=== PATIENT | female | born 1990 | race Caucasian/White ===

== ENCOUNTER 2023-03-29 22:18 | Inpatient (IN) ==
[2023-03-29] MEDS ORDERED: OXYTOCIN 30 UNITS/500 ML BAG IV PRN (22:55)
[2023-03-29] MEDS ORDERED: LIDOCAINE 1% LOCAL 20 ML VIAL INFIL PRN (22:55)
--- NOTE | 2023-03-29 23:01 | History & Physical Report ---
Date of Service March 29, 2023 Assessment & Plan (1) Supervision of normal intrauterine in primigravida: Plan: 32 yo G1 at 40 5/7 wga admitted in labor VSS Fetus cat 1 Labor - expectant management, desires minimal intervention GBS neg desires unmedicated History of Present Illness Chief Complaint: ctx Primary Care Provider: NO PCP 32 yo G1 at 40 5/7 wga presents w/ ctx increasing in frequency and intensity. +FM; denies LOF, VB PNI: VANI from [place] Allergies Allergy/AdvReac Type Severity Reaction Status Date / Time No Known Allergies Allergy Verified 03/23/23 11:15 Home Medications Medication Instructions Recorded Confirmed Type vit 168-iron 27 mg-folic cap PO 01/19/23 03/23/23 History acid 800 mcg-omega3 235 mg capsule (One-A-Day -1) breast pump #1 ea 02/10/23 03/23/23 Rx Patient History Social History (Updated 01/19/23 @ 11:01 by Yocasta Quispe) Smoking Status: Never smoker Do You Dip or Chew Tobacco: No; marital status: marital status details: asas (31) [phone] Current Living Situation: Spouse Current Living Situation Comment: lives with spouse, no pets current occupational status: unemployed Physical Exam Genitourinary: OB Exam Abdomen: + vertex (confirmed by bsus) Manual OB Exam: + cervical dilation (3-4), + cervical effacement 90% and + station -2 OB Exam Monitor Tracing: + external FHT monitor used, + external uterine monitor used (q5) and + category I (120/mod/+accel/-decel) bulging bag noted Results & Data Vital Signs (Past 12 Hours) Vital Signs Temp Pulse Resp BP 03/29/23 22:47 97.9 F 69 18 126/77 Laboratory Results OB Labs: Hemoglobin 10.7 g/dl (12.0-16.0) L 01/27/23 Hematocrit 32.4 % (37.0-47.0) L 01/27/23 Mean Corpuscular Volume 91.5 fL (80.0-100.0) 01/27/23 Platelet Count 165 K/uL (130-400) 01/27/23 OB Optional Labs: No Data to Display Labs Reviewed: AB+ 07/21/22 1st tri 11.2, 34.5 plt 217 ucx neg Syphilis ab neg Hep B surface ag neg hep C neg HIV neg rubella nonimmune 7/2 H/H 10.1/31.5 plt 178 12/04/22 1hr 104 Reports neg Congregation carrier screen Neg NIPT male GBS neg--akh Diagnostic Findings ant plac Coding Level of Care Code None Diagnoses Supervision of normal intrauterine in primigravida Z34.00
[2023-03-29 23:28] LABS: Hematocrit (blood only) 31.6 % (37.0-47.0); Hemoglobin 10.7 g/dl (12.0-16.0); Mean Corpuscular Hemoglobin 30.2 pg (25.0-34.0); Mean Corpuscular Hgb Conc 33.9 g/dL (32.0-36.0); Mean Corpuscular Volume 89.3 fL (80.0-100.0); Mean Platelet Volume 9.4 fL (9.4-12.4); Platelet Count 166 K/uL (130-400); RDW Coefficient of Variation 13.5 % (11.5-14.5); RDW Standard Deviation 44.1 fL (36.4-46.3); Red Blood Count 3.54 M/uL (4.20-5.40); White Blood Count 11.85 K/ul (4.8-10.8)
[2023-03-30] MEDS: LACTATED RINGER'S 1,000 ML IV PRN ×3 (01:45→10:39)
[2023-03-30] MEDS ORDERED: LIDOCAINE 2%/EPINEPHRINE 1:200,000 20 ML PF ONE (01:46)
[2023-03-30] MEDS ORDERED: ePHEDrine sulfate 50 MG/ML AMP ONE (01:46)
[2023-03-30] MEDS ORDERED: fentANYL 2 MCG/ML BUPIVacaine 0.125%-NSS 100ML BAG ONE (01:46)
[2023-03-30] MEDS ORDERED: fentaNYL citrate PF 100 MCG/2 ML VIAL ONE (01:46)
[2023-03-30] MEDS ORDERED: SODIUM CHLORIDE 0.9% PF INJ 10 ML VIAL ONE (01:46)
[2023-03-30] MEDS ORDERED: BUPIVACAINE 0.25% PF 30 ML VIAL ONE (01:46)
[2023-03-30] MEDS ORDERED: diphenhydrAMINE 50 MG/ML VIAL IV PRN (01:54)
[2023-03-30] MEDS ORDERED: ROPIVACAINE 0.5% PF 5 MG/ML 20 ML VIAL EPI PRN (01:54)
[2023-03-30] MEDS ORDERED: fentANYL 2 MCG/ML BUPIVacaine 0.125%-NSS 100ML BAG EPI PRN (01:54)
[2023-03-30] MEDS ORDERED: LIDOCAINE 2%/EPINEPHRINE 1:200,000 20 ML PF EPI STA (01:54)
[2023-03-30] MEDS ORDERED: ePHEDrine sulfate 50 MG/ML AMP IV PRN (01:54)
[2023-03-30] MEDS ORDERED: NALOXONE HCL 0.4 MG/1 ML VIAL/CARP IV PRN (01:54)
[2023-03-30] MEDS ORDERED: BUPIVACAINE 0.25% PF 30 ML VIAL EPI PRN (01:54)
[2023-03-30] MEDS ORDERED: LIDOCAINE 2% MPF LOCAL 5 ML VIAL EPI PRN (01:54)
[2023-03-30] MEDS ORDERED: SODIUM CHLORIDE 0.9% PF INJ 10 ML VIAL EPI STA (01:54)
[2023-03-30] MEDS ORDERED: fentaNYL citrate PF 100 MCG/2 ML VIAL EPI STA (01:54)
[2023-03-30] MEDS ORDERED: NALOXONE HCL 1 MG in SODIUM CHLORIDE 0.9% 1,000 ML IV PRN (01:54)
[2023-03-30] MEDS ORDERED: BUPIVACAINE 0.25% PF 30 ML VIAL EPI STA (01:54)
[2023-03-30] MEDS ORDERED: ONDANSETRON INJ 2 MG/ML 2 ML VIAL IV PRN (01:54)
[2023-03-30] MEDS ORDERED: NALBUPHINE HCL 5 MG in SYRINGE 0 ML IV PRN (01:54)
[2023-03-30] MEDS ORDERED: fentaNYL citrate PF 100 MCG/2 ML VIAL EPI PRN (01:54)
[2023-03-30] MEDS ORDERED: SODIUM CHLORIDE 0.9% PF INJ 10 ML VIAL EPI PRN (01:54)
--- NOTE | 2023-03-30 01:54 | Anesthesiology Consultation ---
Date of Service March 30, 2023 Assessment & Plan Chart Review Chart Review: Acceptable Risk for Labor Epidural Consults Requested none ASA ASA2 Proposed Anesthesia Anesthesia Type: Labor Epidural Risk / Benefits Reviewed With: PT / POA / Parent / Guardian, Accepts Plan and Informed Consent Obtained History Height/Weight Height: 5 ft 3.78 in Weight: 71.668 kg Allergies Allergy/AdvReac Type Severity Reaction Status Date / Time No Known Allergies Allergy Verified 03/30/23 00:29 Medications Home Medications Medication Instructions Recorded Confirmed Last Taken vit 168-iron 27 mg-folic 1 cap PO DAILY 01/19/23 03/30/23 03/29/23 acid 800 mcg-omega3 235 mg capsule (One-A-Day -1) breast pump #1 ea 02/10/23 03/23/23 Unknown ferrous sulfate 325 mg (65 mg 325 mg PO DAILY 03/29/23 03/29/23 03/29/23 iron) tablet (iron) [id number] 1 cap PO DAILY 03/29/23 03/29/23 03/29/23 oil 350 mg- 400 mg capsule Exercise / Class Metabolic Activity II 4-5 Yardwork/Stairs/Walk up hill Past Anesthesia History No Hx of Anesthesia Complications and No Family Hx of Anesthesia Complications History of PONV No Hx of PONV and No Hx of Motion Sickness Social History Smoking Status: Never smoker Do You Dip or Chew Tobacco: No Hx Alcohol Use: No Hx Substance Use: No Physical Exam Vital Signs Last Vital Signs Temp 97.9 F 03/29/23 22:49 Pulse 69 03/29/23 22:49 Resp 18 03/29/23 22:49 BP 126/77 03/29/23 22:49 ENMT Mouth: no dentition abnormality Thyromental Distance: > or= 3.5 Finger Breadths Mallampati Class: II Neck normal visual inspection Respiratory normal respiratory effort Auscultation: lungs clear to auscultation bilaterally Cardiovascular Rate/Rhythm: regular rate and regular rhythm Testing Laboratory Results 03/29/23 23:11
--- NOTE | 2023-03-30 07:23 | Labor Progress Brief Note ---
Date of Service March 30, 2023 Subjective comfortable w/ epidural Assessment & Plan (1) Supervision of normal intrauterine in primigravida: Plan: 32 yo G1 at 40 5/7 wga admitted in labor VSS Fetus cat 1 Labor - progressed well to 7cm, discussed arom and she is amenable. Upon initiation of exam, membranes ruptured with touching. Augment prn GBS neg epidural in place Admission and Anticipated Discharge Date Admission Date: March 29, 2023 Physical Exam Genitourinary: Manual OB Exam: + cervical dilation 7 cm, + cervical effacement 90%, + station -1 and + amniotic fluid (arom clear with just touching bag) OB Exam Monitor Tracing: + external FHT monitor used, + external uterine monitor used (q5) and + category I (120/mod/+accel/-decel) Results & Data Vital Signs (Past 12 Hours) Vital Signs Temp Pulse Resp BP Pulse Ox 03/30/23 07:20 64 97 03/30/23 07:15 63 97 03/30/23 07:13 67 118/72 03/30/23 07:10 62 97 03/30/23 07:05 67 98 03/30/23 07:00 63 97 03/30/23 06:59 59 L 115/68 03/30/23 06:55 62 98 03/30/23 06:53 57 L 94 03/30/23 06:50 80 99 03/30/23 06:45 60 98 03/30/23 06:44 57 L 117/59 L 03/30/23 06:40 62 97 03/30/23 06:35 64 97 03/30/23 06:30 61 18 117/67 98 03/30/23 06:25 62 97 03/30/23 06:20 61 98 03/30/23 06:15 62 98 03/30/23 06:13 65 129/73 03/30/23 06:10 61 97 03/30/23 06:05 66 98 03/30/23 06:00 61 18 97 03/30/23 05:59 64 121/65 03/30/23 05:55 62 97 03/30/23 05:50 67 99 03/30/23 05:45 98 03/30/23 05:45 59 L 03/30/23 05:45 65 115/69 03/30/23 05:40 98.1 F 61 98 03/30/23 05:39 64 114/65 03/30/23 05:35 75 99 03/30/23 05:30 66 18 98 03/30/23 05:25 77 98 03/30/23 05:20 65 97 03/30/23 05:15 71 97 03/30/23 05:10 69 99 03/30/23 05:05 66 99 03/30/23 05:00 76 18 98 03/30/23 04:55 69 98 03/30/23 04:50 73 98 03/30/23 04:45 86 97 03/30/23 04:40 76 98 03/30/23 04:35 77 97 03/30/23 04:30 81 18 97 03/30/23 04:28 56 L 114/65 03/30/23 04:25 65 98 03/30/23 04:20 57 L 96 03/30/23 04:15 58 L 97 03/30/23 04:13 60 117/66 03/30/23 04:10 57 L 97 03/30/23 04:05 70 96 03/30/23 04:00 61 18 97 03/30/23 03:58 61 116/67 03/30/23 03:55 61 96 03/30/23 03:50 63 97 03/30/23 03:45 60 96 03/30/23 03:44 64 116/69 03/30/23 03:40 67 97 03/30/23 03:35 62 96 03/30/23 03:30 63 97 03/30/23 03:28 63 111/64 03/30/23 03:25 63 96 03/30/23 03:20 63 96 03/30/23 03:15 71 97 03/30/23 03:14 72 124/67 03/30/23 03:10 65 97 03/30/23 03:05 67 98 03/30/23 03:00 66 98 03/30/23 02:58 65 120/63 03/30/23 02:55 73 98 03/30/23 02:50 66 98 03/30/23 02:45 70 99 03/30/23 02:44 76 121/63 03/30/23 02:40 81 100 03/30/23 02:35 80 98 03/30/23 02:30 98.6 F 80 18 99 03/30/23 02:27 78 117/55 L 03/30/23 02:25 99 03/30/23 02:25 84 03/30/23 02:25 78 108/58 L 03/30/23 02:23 83 112/62 03/30/23 02:21 79 107/62 03/30/23 02:20 80 98 03/30/23 02:19 86 110/65 03/30/23 02:17 86 109/59 L 03/30/23 02:15 75 108/58 L 03/30/23 02:13 78 114/63 03/30/23 02:11 80 124/69 03/30/23 02:09 68 118/73 03/30/23 02:08 74 99 03/30/23 02:07 70 130/79 03/30/23 02:05 75 124/81 03/30/23 02:03 82 99 03/30/23 01:54 82 132/82 03/29/23 22:49 97.9 F 69 18 126/77 03/29/23 22:47 97.9 F 69 18 126/77 Coding Level of Care Code None Diagnoses Supervision of normal intrauterine in primigravida Z34.00
[2023-03-30] MEDS ORDERED: Nursing to Pharmacy Communication SCH (09:45)
[2023-03-30 11:39] LABS: GC (Neis gonorrhoeae) RNA Not Detected (NotDetected)
--- NOTE | 2023-03-30 14:17 | Labor Progress Brief Note ---
Date of Service March 30, 2023 Subjective Comfortable with epidural. FHT 120s mod leonor, +accels, +occ variables with pushing. [place] Q 3 SVE 3+ station, actively pushing. Continue labor, continue pushing. Anticipate . Assessment & Plan Admission and Anticipated Discharge Date Admission Date: March 29, 2023 Results & Data Vital Signs (Past 12 Hours) Vital Signs Temp Pulse Resp BP Pulse Ox 03/30/23 14:15 68 98 03/30/23 14:10 93 03/30/23 14:10 78 03/30/23 14:10 78 91 03/30/23 14:05 62 99 03/30/23 14:00 57 L 99 03/30/23 13:55 63 98 03/30/23 13:50 61 99 03/30/23 13:45 67 99 03/30/23 13:40 58 L 97 03/30/23 13:35 58 L 98 03/30/23 13:30 74 98 03/30/23 13:25 74 99 03/30/23 13:20 71 99 03/30/23 13:15 72 100 03/30/23 13:13 63 126/68 03/30/23 13:10 54 L 98 03/30/23 13:05 60 99 03/30/23 13:00 71 97 03/30/23 12:58 57 L 111/66 03/30/23 12:55 66 98 03/30/23 12:50 61 98 03/30/23 12:45 66 97 03/30/23 12:44 58 L 110/59 L 03/30/23 12:40 57 L 99 03/30/23 12:35 60 98 03/30/23 12:30 62 98 03/30/23 12:25 69 99 03/30/23 12:20 51 L 97 03/30/23 12:15 51 L 98 03/30/23 12:14 60 122/67 03/30/23 12:10 55 L 98 03/30/23 12:05 52 L 98 03/30/23 12:00 61 99 03/30/23 11:58 56 L 117/66 03/30/23 11:55 66 99 03/30/23 11:50 50 L 96 03/30/23 11:47 54 L 92 03/30/23 11:45 63 100 03/30/23 11:43 59 L 129/70 03/30/23 11:40 60 97 03/30/23 11:35 61 96 03/30/23 11:31 72 92 03/30/23 11:30 61 97 03/30/23 11:28 59 L 130/71 03/30/23 11:25 61 97 03/30/23 11:20 59 L 97 03/30/23 11:15 62 97 03/30/23 11:14 70 135/75 03/30/23 11:10 57 L 96 03/30/23 11:05 64 93 03/30/23 11:00 59 L 98 03/30/23 10:59 60 127/70 03/30/23 10:55 60 98 03/30/23 10:50 59 L 99 03/30/23 10:45 67 98 03/30/23 10:44 71 125/60 03/30/23 10:40 74 99 03/30/23 10:35 64 97 03/30/23 10:30 97 03/30/23 10:30 64 03/30/23 10:30 64 134/63 03/30/23 10:25 71 99 03/30/23 10:20 70 100 03/30/23 10:15 72 118/66 99 03/30/23 10:10 67 98 03/30/23 10:05 71 99 03/30/23 10:00 68 97 03/30/23 09:59 65 116/63 03/30/23 09:55 68 98 03/30/23 09:50 67 99 03/30/23 09:45 75 110/57 L 98 03/30/23 09:43 16 03/30/23 09:43 37.0 C 16 03/30/23 09:40 68 98 03/30/23 09:35 64 98 03/30/23 09:30 71 98 03/30/23 09:29 63 128/68 03/30/23 09:25 67 99 03/30/23 09:20 69 100 03/30/23 09:15 74 100 03/30/23 09:14 65 118/66 03/30/23 09:10 68 98 03/30/23 09:05 72 98 03/30/23 09:00 70 98 03/30/23 08:59 61 129/65 03/30/23 08:55 66 97 03/30/23 08:50 67 98 03/30/23 08:45 61 99 03/30/23 08:43 74 128/77 03/30/23 08:40 67 99 03/30/23 08:35 62 98 03/30/23 08:30 62 98 03/30/23 08:29 61 127/65 03/30/23 08:25 66 98 03/30/23 08:20 69 97 03/30/23 08:15 63 97 03/30/23 08:13 70 109/58 L 03/30/23 08:10 72 99 03/30/23 08:05 68 99 03/30/23 08:00 85 99 03/30/23 07:58 61 110/62 03/30/23 07:55 63 97 03/30/23 07:50 59 L 97 03/30/23 07:45 57 L 98 03/30/23 07:44 54 L 129/65 03/30/23 07:40 59 L 97 03/30/23 07:35 70 98 03/30/23 07:30 60 98 03/30/23 07:28 37.2 C 70 22 98/55 L 03/30/23 07:25 68 98 03/30/23 07:20 64 97 03/30/23 07:15 63 97 03/30/23 07:13 67 118/72 03/30/23 07:10 62 97 03/30/23 07:05 67 98 03/30/23 07:00 63 97 03/30/23 06:59 59 L 115/68 03/30/23 06:55 62 98 03/30/23 06:53 57 L 94 03/30/23 06:50 80 99 03/30/23 06:45 60 98 03/30/23 06:44 57 L 117/59 L 03/30/23 06:40 62 97 03/30/23 06:35 64 97 03/30/23 06:30 61 18 117/67 98 03/30/23 06:25 62 97 03/30/23 06:20 61 98 03/30/23 06:15 62 98 03/30/23 06:13 65 129/73 03/30/23 06:10 61 97 03/30/23 06:05 66 98 03/30/23 06:00 61 18 97 03/30/23 05:59 64 121/65 03/30/23 05:55 62 97 03/30/23 05:50 67 99 03/30/23 05:45 98 03/30/23 05:45 59 L 03/30/23 05:45 65 115/69 03/30/23 05:40 36.7 C 61 98 03/30/23 05:39 64 114/65 03/30/23 05:35 75 99 03/30/23 05:30 66 18 98 03/30/23 05:25 77 98 03/30/23 05:20 65 97 03/30/23 05:15 71 97 03/30/23 05:10 69 99 03/30/23 05:05 66 99 03/30/23 05:00 76 18 98 03/30/23 04:55 69 98 03/30/23 04:50 73 98 03/30/23 04:45 86 97 03/30/23 04:40 76 98 03/30/23 04:35 77 97 03/30/23 04:30 81 18 97 03/30/23 04:28 56 L 114/65 03/30/23 04:25 65 98 03/30/23 04:20 57 L 96 03/30/23 04:15 58 L 97 03/30/23 04:13 60 117/66 03/30/23 04:10 57 L 97 03/30/23 04:05 70 96 03/30/23 04:00 61 18 97 03/30/23 03:58 61 116/67 03/30/23 03:55 61 96 03/30/23 03:50 63 97 03/30/23 03:45 60 96 03/30/23 03:44 64 116/69 03/30/23 03:40 67 97 03/30/23 03:35 62 96 03/30/23 03:30 63 97 03/30/23 03:28 63 111/64 03/30/23 03:25 63 96 03/30/23 03:20 63 96 03/30/23 03:15 71 97 03/30/23 03:14 72 124/67 03/30/23 03:10 65 97 03/30/23 03:05 67 98 03/30/23 03:00 66 98 03/30/23 02:58 65 120/63 03/30/23 02:55 73 98 03/30/23 02:50 66 98 03/30/23 02:45 70 99 03/30/23 02:44 76 121/63 03/30/23 02:40 81 100 03/30/23 02:35 80 98 03/30/23 02:30 37.0 C 80 18 99 03/30/23 02:27 78 117/55 L 03/30/23 02:25 99 03/30/23 02:25 84 03/30/23 02:25 78 108/58 L 03/30/23 02:23 83 112/62 03/30/23 02:21 79 107/62 03/30/23 02:20 80 98 03/30/23 02:19 86 110/65 Coding Level of Care Code None
[2023-03-30] MEDS ORDERED: OXYTOCIN 30 UNITS/500 ML BAG IV PRN ×2 (14:29→17:44)
--- NOTE | 2023-03-30 14:31 | Labor Progress Brief Note ---
Date of Service March 30, 2023 Subjective Requesting pitocin - I think this would be a good idea to help increase power of pushing. Orders placed, will start. Continue pushing. Assessment & Plan Admission and Anticipated Discharge Date Admission Date: March 29, 2023 Results & Data Vital Signs (Past 12 Hours) Vital Signs Temp Pulse Resp BP Pulse Ox 03/30/23 14:25 68 99 03/30/23 14:20 37.4 C 58 L 22 99 03/30/23 14:15 68 98 03/30/23 14:10 93 03/30/23 14:10 78 03/30/23 14:10 78 91 03/30/23 14:05 62 99 03/30/23 14:00 57 L 99 03/30/23 13:55 63 98 03/30/23 13:50 61 99 03/30/23 13:45 67 99 03/30/23 13:40 58 L 97 03/30/23 13:35 58 L 98 03/30/23 13:30 74 98 03/30/23 13:25 74 99 03/30/23 13:20 71 99 03/30/23 13:15 72 100 03/30/23 13:13 63 126/68 03/30/23 13:10 54 L 98 03/30/23 13:05 60 99 03/30/23 13:00 71 97 03/30/23 12:58 57 L 111/66 03/30/23 12:55 66 98 03/30/23 12:50 61 98 03/30/23 12:45 66 97 03/30/23 12:44 58 L 110/59 L 03/30/23 12:40 57 L 99 03/30/23 12:35 60 98 03/30/23 12:30 62 98 03/30/23 12:25 69 99 03/30/23 12:20 51 L 97 03/30/23 12:15 51 L 98 03/30/23 12:14 60 122/67 03/30/23 12:10 55 L 98 03/30/23 12:05 52 L 98 03/30/23 12:00 61 99 03/30/23 11:58 56 L 117/66 03/30/23 11:55 66 99 03/30/23 11:50 50 L 96 03/30/23 11:47 54 L 92 03/30/23 11:45 63 100 03/30/23 11:43 59 L 129/70 03/30/23 11:40 60 97 03/30/23 11:35 61 96 03/30/23 11:31 72 92 03/30/23 11:30 61 97 03/30/23 11:28 59 L 130/71 03/30/23 11:25 61 97 03/30/23 11:20 59 L 97 03/30/23 11:15 62 97 03/30/23 11:14 70 135/75 03/30/23 11:10 57 L 96 03/30/23 11:05 64 93 03/30/23 11:00 59 L 98 03/30/23 10:59 60 127/70 03/30/23 10:55 60 98 03/30/23 10:50 59 L 99 03/30/23 10:45 67 98 03/30/23 10:44 71 125/60 03/30/23 10:40 74 99 03/30/23 10:35 64 97 03/30/23 10:30 97 03/30/23 10:30 64 03/30/23 10:30 64 134/63 03/30/23 10:25 71 99 03/30/23 10:20 70 100 03/30/23 10:15 72 118/66 99 03/30/23 10:10 67 98 03/30/23 10:05 71 99 03/30/23 10:00 68 97 03/30/23 09:59 65 116/63 03/30/23 09:55 68 98 03/30/23 09:50 67 99 03/30/23 09:45 75 110/57 L 98 03/30/23 09:43 16 03/30/23 09:43 37.0 C 16 03/30/23 09:40 68 98 03/30/23 09:35 64 98 03/30/23 09:30 71 98 03/30/23 09:29 63 128/68 03/30/23 09:25 67 99 03/30/23 09:20 69 100 03/30/23 09:15 74 100 03/30/23 09:14 65 118/66 03/30/23 09:10 68 98 03/30/23 09:05 72 98 03/30/23 09:00 70 98 03/30/23 08:59 61 129/65 03/30/23 08:55 66 97 03/30/23 08:50 67 98 03/30/23 08:45 61 99 03/30/23 08:43 74 128/77 03/30/23 08:40 67 99 03/30/23 08:35 62 98 03/30/23 08:30 62 98 03/30/23 08:29 61 127/65 03/30/23 08:25 66 98 03/30/23 08:20 69 97 03/30/23 08:15 63 97 03/30/23 08:13 70 109/58 L 03/30/23 08:10 72 99 03/30/23 08:05 68 99 03/30/23 08:00 85 99 03/30/23 07:58 61 110/62 03/30/23 07:55 63 97 03/30/23 07:50 59 L 97 03/30/23 07:45 57 L 98 03/30/23 07:44 54 L 129/65 03/30/23 07:40 59 L 97 03/30/23 07:35 70 98 03/30/23 07:30 60 98 03/30/23 07:28 37.2 C 70 22 98/55 L 03/30/23 07:25 68 98 03/30/23 07:20 64 97 03/30/23 07:15 63 97 03/30/23 07:13 67 118/72 03/30/23 07:10 62 97 03/30/23 07:05 67 98 03/30/23 07:00 63 97 03/30/23 06:59 59 L 115/68 03/30/23 06:55 62 98 03/30/23 06:53 57 L 94 03/30/23 06:50 80 99 03/30/23 06:45 60 98 03/30/23 06:44 57 L 117/59 L 03/30/23 06:40 62 97 03/30/23 06:35 64 97 03/30/23 06:30 61 18 117/67 98 03/30/23 06:25 62 97 03/30/23 06:20 61 98 03/30/23 06:15 62 98 03/30/23 06:13 65 129/73 03/30/23 06:10 61 97 03/30/23 06:05 66 98 03/30/23 06:00 61 18 97 03/30/23 05:59 64 121/65 03/30/23 05:55 62 97 03/30/23 05:50 67 99 03/30/23 05:45 98 03/30/23 05:45 59 L 03/30/23 05:45 65 115/69 03/30/23 05:40 36.7 C 61 98 03/30/23 05:39 64 114/65 03/30/23 05:35 75 99 03/30/23 05:30 66 18 98 03/30/23 05:25 77 98 03/30/23 05:20 65 97 03/30/23 05:15 71 97 03/30/23 05:10 69 99 03/30/23 05:05 66 99 03/30/23 05:00 76 18 98 03/30/23 04:55 69 98 03/30/23 04:50 73 98 03/30/23 04:45 86 97 03/30/23 04:40 76 98 03/30/23 04:35 77 97 03/30/23 04:30 81 18 97 03/30/23 04:28 56 L 114/65 03/30/23 04:25 65 98 03/30/23 04:20 57 L 96 03/30/23 04:15 58 L 97 03/30/23 04:13 60 117/66 03/30/23 04:10 57 L 97 03/30/23 04:05 70 96 03/30/23 04:00 61 18 97 03/30/23 03:58 61 116/67 03/30/23 03:55 61 96 03/30/23 03:50 63 97 03/30/23 03:45 60 96 03/30/23 03:44 64 116/69 03/30/23 03:40 67 97 03/30/23 03:35 62 96 03/30/23 03:30 63 97 03/30/23 03:28 63 111/64 03/30/23 03:25 63 96 03/30/23 03:20 63 96 03/30/23 03:15 71 97 03/30/23 03:14 72 124/67 03/30/23 03:10 65 97 03/30/23 03:05 67 98 03/30/23 03:00 66 98 03/30/23 02:58 65 120/63 03/30/23 02:55 73 98 03/30/23 02:50 66 98 03/30/23 02:45 70 99 03/30/23 02:44 76 121/63 03/30/23 02:40 81 100 03/30/23 02:35 80 98 Coding Level of Care Code None
--- NOTE | 2023-03-30 15:57 | Labor Progress Brief Note ---
Date of Service March 30, 2023 Subjective Pushing. Cannot feel much with epidural, however is having good pushing effort. FHT Cat 1 [place] Q 2 Pitocin @ 3, this has improved ctx pattern. We have been pushing for 2h at this point, good pushing effort, station 3+, not yet. Feels close. Assessment & Plan Admission and Anticipated Discharge Date Admission Date: March 29, 2023 Results & Data Vital Signs (Past 12 Hours) Vital Signs Temp Pulse Resp BP Pulse Ox 03/30/23 15:53 100 03/30/23 15:53 72 03/30/23 15:53 56 L 129/63 03/30/23 15:48 61 99 03/30/23 15:45 78 92 03/30/23 15:43 82 99 03/30/23 15:38 65 100 03/30/23 15:37 81 92 03/30/23 15:33 66 99 03/30/23 15:28 68 99 03/30/23 15:27 67 93 03/30/23 15:23 62 100 03/30/23 15:22 68 92 03/30/23 15:18 60 100 03/30/23 15:13 78 97 03/30/23 15:08 67 84 L 03/30/23 15:00 62 97 03/30/23 14:55 75 99 03/30/23 14:51 73 93 03/30/23 14:50 68 100 03/30/23 14:45 71 100 03/30/23 14:42 85 93 03/30/23 14:40 57 L 97 03/30/23 14:35 68 99 03/30/23 14:30 73 99 03/30/23 14:25 68 99 03/30/23 14:20 37.4 C 58 L 22 99 03/30/23 14:15 68 98 03/30/23 14:10 93 03/30/23 14:10 78 03/30/23 14:10 78 91 03/30/23 14:05 62 99 03/30/23 14:00 57 L 99 03/30/23 13:55 63 98 03/30/23 13:50 61 99 03/30/23 13:45 67 99 03/30/23 13:40 58 L 97 03/30/23 13:35 58 L 98 03/30/23 13:30 74 98 03/30/23 13:25 74 99 03/30/23 13:20 71 99 03/30/23 13:15 72 100 03/30/23 13:13 63 126/68 03/30/23 13:10 54 L 98 03/30/23 13:05 60 99 03/30/23 13:00 71 97 03/30/23 12:58 57 L 111/66 03/30/23 12:55 66 98 03/30/23 12:50 61 98 03/30/23 12:45 66 97 03/30/23 12:44 58 L 110/59 L 03/30/23 12:40 57 L 99 03/30/23 12:35 60 98 03/30/23 12:30 62 98 03/30/23 12:25 69 99 03/30/23 12:20 51 L 97 03/30/23 12:15 51 L 98 03/30/23 12:14 60 122/67 03/30/23 12:10 55 L 98 03/30/23 12:05 52 L 98 03/30/23 12:00 61 99 03/30/23 11:58 56 L 117/66 03/30/23 11:55 66 99 03/30/23 11:50 50 L 96 03/30/23 11:47 54 L 92 03/30/23 11:45 63 100 03/30/23 11:43 59 L 129/70 03/30/23 11:40 60 97 03/30/23 11:35 61 96 03/30/23 11:31 72 92 03/30/23 11:30 61 97 03/30/23 11:28 59 L 130/71 03/30/23 11:25 61 97 03/30/23 11:20 59 L 97 03/30/23 11:15 62 97 03/30/23 11:14 70 135/75 03/30/23 11:10 57 L 96 03/30/23 11:05 64 93 03/30/23 11:00 59 L 98 03/30/23 10:59 60 127/70 03/30/23 10:55 60 98 03/30/23 10:50 59 L 99 03/30/23 10:45 67 98 03/30/23 10:44 71 125/60 03/30/23 10:40 74 99 03/30/23 10:35 64 97 03/30/23 10:30 97 03/30/23 10:30 64 03/30/23 10:30 64 134/63 03/30/23 10:25 71 99 03/30/23 10:20 70 100 03/30/23 10:15 72 118/66 99 03/30/23 10:10 67 98 03/30/23 10:05 71 99 03/30/23 10:00 68 97 03/30/23 09:59 65 116/63 03/30/23 09:55 68 98 03/30/23 09:50 67 99 03/30/23 09:45 75 110/57 L 98 03/30/23 09:43 16 03/30/23 09:43 37.0 C 16 03/30/23 09:40 68 98 03/30/23 09:35 64 98 03/30/23 09:30 71 98 03/30/23 09:29 63 128/68 03/30/23 09:25 67 99 03/30/23 09:20 69 100 03/30/23 09:15 74 100 03/30/23 09:14 65 118/66 03/30/23 09:10 68 98 03/30/23 09:05 72 98 03/30/23 09:00 70 98 03/30/23 08:59 61 129/65 03/30/23 08:55 66 97 03/30/23 08:50 67 98 03/30/23 08:45 61 99 03/30/23 08:43 74 128/77 03/30/23 08:40 67 99 03/30/23 08:35 62 98 03/30/23 08:30 62 98 03/30/23 08:29 61 127/65 03/30/23 08:25 66 98 03/30/23 08:20 69 97 03/30/23 08:15 63 97 03/30/23 08:13 70 109/58 L 03/30/23 08:10 72 99 03/30/23 08:05 68 99 03/30/23 08:00 85 99 03/30/23 07:58 61 110/62 03/30/23 07:55 63 97 03/30/23 07:50 59 L 97 03/30/23 07:45 57 L 98 03/30/23 07:44 54 L 129/65 03/30/23 07:40 59 L 97 03/30/23 07:35 70 98 03/30/23 07:30 60 98 03/30/23 07:28 37.2 C 70 22 98/55 L 03/30/23 07:25 68 98 03/30/23 07:20 64 97 03/30/23 07:15 63 97 03/30/23 07:13 67 118/72 03/30/23 07:10 62 97 03/30/23 07:05 67 98 03/30/23 07:00 63 97 03/30/23 06:59 59 L 115/68 03/30/23 06:55 62 98 03/30/23 06:53 57 L 94 03/30/23 06:50 80 99 03/30/23 06:45 60 98 03/30/23 06:44 57 L 117/59 L 03/30/23 06:40 62 97 03/30/23 06:35 64 97 03/30/23 06:30 61 18 117/67 98 03/30/23 06:25 62 97 03/30/23 06:20 61 98 03/30/23 06:15 62 98 03/30/23 06:13 65 129/73 03/30/23 06:10 61 97 03/30/23 06:05 66 98 03/30/23 06:00 61 18 97 03/30/23 05:59 64 121/65 03/30/23 05:55 62 97 03/30/23 05:50 67 99 03/30/23 05:45 98 03/30/23 05:45 59 L 03/30/23 05:45 65 115/69 03/30/23 05:40 36.7 C 61 98 03/30/23 05:39 64 114/65 03/30/23 05:35 75 99 03/30/23 05:30 66 18 98 03/30/23 05:25 77 98 03/30/23 05:20 65 97 03/30/23 05:15 71 97 03/30/23 05:10 69 99 03/30/23 05:05 66 99 03/30/23 05:00 76 18 98 03/30/23 04:55 69 98 03/30/23 04:50 73 98 03/30/23 04:45 86 97 03/30/23 04:40 76 98 03/30/23 04:35 77 97 03/30/23 04:30 81 18 97 03/30/23 04:28 56 L 114/65 03/30/23 04:25 65 98 03/30/23 04:20 57 L 96 03/30/23 04:15 58 L 97 03/30/23 04:13 60 117/66 03/30/23 04:10 57 L 97 03/30/23 04:05 70 96 03/30/23 04:00 61 18 97 03/30/23 03:58 61 116/67 Coding Level of Care Code None
--- NOTE | 2023-03-30 17:15 | Delivery Summary ---
Vaginal Delivery Summary Date of Service March 30, 2023 Vaginal Delivery Summary and 2nd Degree LAC Vaginal Delivery Summary: Pre-delivery diagnoses: 32yo @ 40 6/7, spontaneous labor Post-delivery diagnoses: same Procedure: spontaneous vaginal delivery, repair of 2nd degree perineal laceration. Surgeon: Aliya Mcghee DO Complications: none Findings: Viable male . Apgars: 7/9. Weight pending, please see nursery records. Estimated blood loss: 300ml Description of delivery: The patient progressed to complete with epidural anesthesia. She then began to push. She spontaneously vaginally delivered a viable from the cephalic presentation. The head delivered in CANDELARIO position. No nuchal. The anterior shoulder delivered, followed by the posterior shoulder, followed by the body. The baby was placed on mother's abdomen and a spontaneous cry was heard. Delayed cord clamping was employed, and the cord was doubly clamped and cut. Cord blood was obtained. The placenta was delivered spontaneously intact with a 3-vessel cord. The uterus and vagina were swept of clots and debris. IV pitocin was given. The uterus became firm. The cervix, vagina, and perineum were inspected and a 2nd degree perineal laceration was noted and repaired with 3-0 vicryl in standard fashion. Excellent hemostasis was observed. The mother and baby are recovering in stable and good condition in the room. Sponge, needle and instrument counts were correct x 2. Aliya Mcghee DO [facility] Vaginal Delivery Charge Vaginal Delivery Codes: 75939 global code for the antepartum, delivery, and post- Delivery Type Details: and 2nd Degree LAC
--- NOTE | 2023-03-30 17:37 | Anesthesia Procedure Note ---
Date of Service March 30, 2023 Anesthesia Post Epidural Note Vital Signs Vital Signs: Temp Pulse Resp BP Pulse Ox 38.7 C H 75 22 126/58 L 91 03/30/23 16:08 03/30/23 17:24 03/30/23 14:20 03/30/23 17:24 03/30/23 16:42 Pain Intensity Bilateral Abdomen: Pain Intensity: 2 Notes Mental Status: alert / awake / arousable Nausea / Vomiting: adequately controlled Pain: adequately controlled Airway Patency, RR, SpO2: stable & adequate BP & HR: stable & adequate Hydration State: stable & adequate Neuraxial Anesthesia: was administered and sensory block is resolving Anesthetic Complications: no major complications apparent and Pt Satisfied with anesthetic care Epidural: Removed without complications and With tip intact
[2023-03-30] MEDS ORDERED: HYDROCORTISONE ACETATE 25 MG SUPP PR PRN (17:44)
[2023-03-30] MEDS ORDERED: DIPHTHERIA/TETANUS/PERTUSSIS Vaccine (Tdap, Age 7+yrs) 0.5mL SYR/VL IM ONE (17:44)
[2023-03-30] MEDS ORDERED: MEASLES, MUMPS & RUBELLA VIRUS VACCINE (MMR) VIAL SQ ONE (17:44)
[2023-03-30] MEDS ORDERED: bisacodyL 10 MG SUPP PR PRN (17:44)
[2023-03-30] MEDS ORDERED: BENZOCAINE 20% SPRY 85 APPLN/85 GM CAN EXT PRN (17:44)
[2023-03-30] MEDS: DOCUSATE SODIUM 100 MG CAP PO SCH (20:45)
[2023-03-31 06:39] LABS: Hematocrit (blood only) 25.7 % (37.0-47.0); Hemoglobin 8.5 g/dl (12.0-16.0); Mean Corpuscular Hemoglobin 29.5 pg (25.0-34.0); Mean Corpuscular Hgb Conc 33.1 g/dL (32.0-36.0); Mean Corpuscular Volume 89.2 fL (80.0-100.0); Mean Platelet Volume 9.8 fL (9.4-12.4); Platelet Count 163 K/uL (130-400); RDW Coefficient of Variation 13.9 % (11.5-14.5); RDW Standard Deviation 45.4 fL (36.4-46.3); Red Blood Count 2.88 M/uL (4.20-5.40); White Blood Count 11.58 K/ul (4.8-10.8)
--- NOTE | 2023-03-31 07:10 | Obstetrical Progress Note ---
Date of Service <Andreea Smith MD - Last Filed: 03/31/23 08:30> March 31, 2023 Assessment & Plan <Andreea Smith MD - Last Filed: 03/31/23 08:30> (1) Encounter for assessment: Plan Patient with the above mentioned history and findings was evaluated at bedside and found awake, alert, oriented in all spheres, afebrile, and in no acute distress. Vital signs showed no fever and blood pressures remained stable. Her blood type is AB positive and most recent hemoglobin is adequate at 8.5 g/dL. Denies symptoms of anemia such as lightheadedness, dizziness, or tachycardia. She is GBS negative and rubella non-immune. She should receive the MMR vaccine prior to discharge if she is in agreement. Overall, patient is doing well clinically and meeting the desired milestones. Will continue routine pp care. She was encouraged to try and use Motrin as it would help with her pain, to which she expressed understanding and said she would consider it should she need it during the day. All questions answered. <Aliya Mcghee DO - Last Filed: 03/31/23 08:48> (1) Encounter for assessment: Subjective <Andreea Smith MD - Last Filed: 03/31/23 08:30> Sawyer is a 32 y/o female who is now PPD # 1 following at 40 6/7 weeks. Reports feeling well overall this morning. Refers mild abdominal cramping & 8/10 pain since she hasn't been interested in taking analgesics. States she will consider using Ibuprofen today if she needs them. Voiding spontaneously. Has passed flatus but no bowel movements yet. Tolerating meals overnight and able to ambulate some. Some persistent lochia with some improvement this morning. . Constitutional: no fever, no chills or no sweats Denies shortness of breath or difficulty breathing Cardiovascular: no chest pain or no palpitations Breast: no breast pain Genitourinary (female): no dysuria Neurologic: no headache(s) Denies changes in vision Physical Exam <Andreea Smith MD - Last Filed: 03/31/23 08:30> General: Alert. Oriented to person, time, and place. Afebrile. No acute distress. Eyes: pupils equal and reactive to light bilaterally, extraocular movements intact. Cardiac: Regular rate and rhythm, no murmurs/rubs/gallops. Respiratory: No increased work of breathing. Symmetrical chest rise. No respiratory distress. Abdomen: Soft, nontender, nondistended. Bowel sounds present. Uterus: Uterine fundus firm, mildly tender, and palpable at umbilicus. Lower Extremities: No lower extremity edema or swelling. No deep calf pain. Stella's negative bilaterally. Psych: Euthymic affect. Mood and affect congruence. Regular speech rate and content. Results & Data <Andreea Smith MD - Last Filed: 03/31/23 08:30> Vital Signs (Past 12 Hours) Vital Signs Temp Pulse Resp BP Pulse Ox O2 Del Method 03/31/23 06:35 37.7 C H 03/31/23 03:30 37.7 C H 03/31/23 03:22 88 18 138/73 96 Room Air 03/30/23 23:05 37.2 C 76 18 117/70 95 Room Air 03/30/23 19:29 37 C 90 18 111/71 96 Room Air 03/30/23 19:20 37.7 C H Supervising Physician <Aliya Mcghee DO - Last Filed: 03/31/23 08:48> Co-Signing Physician Notes Resident Physician Supervision Note: I was present with Dr. Smith during the history and exam. I discussed the case with the resident and agree with the findings and plan as documented in the note. Any exceptions or clarifications are listed here: PPD#1 doing well. Routine care. Documented By: Aliya Mcghee DO Resident Activity Tracking <Andreea Smith MD - Last Filed: 03/31/23 08:30> Resident Involvement: Resident Care Provided Care Provided: OB Delivery
[2023-03-31] MEDS ORDERED: NON-FORMULARY MEDICATION (Prenatal 168-Iron-Folic-Omega3 [One-A-Day Prenatal-1] 27 mg iron PO SCH (09:00)
[2023-03-31] MEDS: DOCUSATE SODIUM 100 MG CAP PO SCH ×2 (09:03→19:37)
[2023-03-31] MEDS: FERROUS SULFATE 325 MG TAB PO SCH (09:05)
[2023-03-31] MEDS: PRENATAL VITAMIN 1 TAB PO SCH ×2 (09:05→19:38)
[2023-03-31] MEDS: OMEGA-3 (PURIFIED FISH OIL) 1 GM CAP PO SCH ×2 (09:05→19:37)
[2023-03-31] MEDS: IBUPROFEN 600 MG TAB PO PRN ×2 (13:10→19:37)
[2023-03-31] MEDS ORDERED: bisacodyL 5 MG TABEC PO SCH (20:00)
[2023-03-31] MEDS: ACETAMINOPHEN 325 MG TAB PO PRN (20:09)
--- NOTE | 2023-03-31 21:40 | Obstetrical Progress Note ---
Date of Service March 31, 2023 Assessment & Plan (1) fever: Plan Patient with significant fever but thus far no localizing source on exam. Will get labs, urine, blood cx and reassess. Discussed poss need to trt as presumed endometritis. Will await some results. Admission and Anticipated Discharge Date Admission Date: March 29, 2023 Subjective ctsp due to elevated temp. after first call about temp >38F, i was attending 2 back to back deliveries but after that was recalled with temp to 39.2F and was able to visit with pt. on arrival she is laying on her side, spouse helping her try to get baby to latch. she complains only of feeling hot. she denies breast pain, back pain, cp, sob, n/v, bowel change, cough cold sx, urinary pain/issues, uterine pain. when she gets up she has some soreness at her laceration site but not in her abdomen at all. does not recall any issues with delivery as far as infection or any uterine exploration. she is not having any concerning bleeding. she is now >24hr pp from , with 2nd degree perineal laceration. She does say she does feel her breathing is different since the delivery but is not short of breath. Review of Systems Constitutional: as per Subjective / HPI Physical Exam Constitutional: WD/WN, vitals as above (pulse ox 100% on RA) Gastrointestinal (Abdomen): Inspection/Auscultation: abdomen normal to inspection Percussion/Palpation: abdomen soft (ff at u non tender .); abdomen nontender and no guarding Musculoskeletal: nt calves, no edema Neurologic: grossly normal Psychiatric: A+Ox3, euthymic affect Genitourinary: no CVA tenderness pt trying to breast feed, will reeval perineum thereafter. Results & Data Vital Signs (Past 12 Hours) Vital Signs Temp Pulse Pulse Resp BP Pulse Ox O2 Del Method 03/31/23 21:00 102.6 F H 03/31/23 19:35 101.5 F H 112 H 122 H 18 132/75 100 Room Air 03/31/23 18:36 99.3 F 101 H 18 100 Room Air 03/31/23 13:05 97.3 F L 96 H 16 110/70 99 Room Air PG Care Time/CCT Total # of Minutes Spent Total Time Spent with Patient: Total time spent is greater than 50% in coordination of care (as documented) at patient's floor/unit and/or counseling patient: Coding Level of Care Code None Diagnoses fever O86.4
[2023-03-31 22:44] LABS: Basophils # (auto) 0.01 K/uL (0.00-0.20); Basophils % (auto) 0.1 %; Eosinophils # (auto) 0.03 K/uL (0.00-0.50); Eosinophils % (auto) 0.3 %; Hemoglobin 8.1 g/dl (12.0-16.0); Immature Granulocytes # (auto) 0.07 K/uL (0.01-0.20); Immature Granulocytes % (auto) 0.6 %; Lymphocytes % (auto) 13.1 %; Mean Corpuscular Hemoglobin 29.5 pg (25.0-34.0); Mean Corpuscular Hgb Conc 32.4 g/dL (32.0-36.0); Mean Corpuscular Volume 90.9 fL (80.0-100.0); Mean Platelet Volume 9.4 fL (9.4-12.4); Monocytes % (auto) 5.2 %; Neutrophils # (auto) 9.24 K/uL (1.40-6.50); Neutrophils % (auto) 80.7 %; Platelet Count 146 K/uL (130-400); RDW Coefficient of Variation 13.8 % (11.5-14.5); RDW Standard Deviation 45.2 fL (36.4-46.3); Red Blood Count 2.75 M/uL (4.20-5.40); White Blood Count 11.45 K/ul (4.8-10.8)
[2023-03-31 22:45] LABS: Appearance Urine Cloudy (Clear); Bacteria Urine Automated Negative (Negative); Bilirubin Urine Negative (Negative); Blood Urine 3+ (Negative); Cast Urine Automated 0 /lpf (0-5); Color Urine Orange; Glucose Urine UA Negative (Negative); Ketones Urine Negative (Negative); Leukocyte Esterase Urine 3+ (Negative); Nitrite Urine Negative (Negative); Protein Urine Trace (Negative); RBC Urine Automated >30 /hpf (0-4); Specific Gravity Urine 1.006 (1.000-1.030); Urobilinogen Urine Negative (Negative); WBC Urine Automated >30 /hpf (0-5)
--- NOTE | 2023-04-01 00:43 | Obstetrical Progress Note ---
Date of Service April 01, 2023 Assessment & Plan (1) fever: Plan pt fever is reduced and she is explained above in hpi. would lean toward starting abx for presumed endometritis given her temp, pulse and left shift but explained how her presentation in not clear cut. that trt would be with iv abx and endpoints would be temp curve and decreased left shift. she does not want to proceed in this fashion at this time due to not wanting an iv placed. she is aware that if she has temp increase again would strongly rec trt. will also repeat cbc with diff in am and compare these results and follow her temp curve. she is aware that delay in trt might result in her being more ill and/or delay her departure. she prefers to take that risk at this time. Admission and Anticipated Discharge Date Admission Date: March 29, 2023 Subjective pt sleeping when i went to check on her. says she is feeling better now. reviewed her labs with her, so far urine is more indicative of contam, wbc is surprising not as high at this am but left shift is noted and this am no diff was done. cxr no official read, no obvious infiltrate Review of Systems Constitutional: as per Subjective / HPI Physical Exam Constitutional: WD/WN, vitals as above (Tmax 102.6 at 2100, current 98.6) Results & Data Vital Signs (Past 12 Hours) Vital Signs Temp Pulse Pulse Resp BP Pulse Ox O2 Del Method 03/31/23 22:22 98.6 F 111 H 18 117/76 98 Room Air 03/31/23 21:00 102.6 F H 03/31/23 19:35 101.5 F H 112 H 122 H 18 132/75 100 Room Air 03/31/23 18:36 99.3 F 101 H 18 100 Room Air 03/31/23 13:05 97.3 F L 96 H 16 110/70 99 Room Air PG Care Time/CCT Total # of Minutes Spent Total Time Spent with Patient: Total time spent is greater than 50% in coordination of care (as documented) at patient's floor/unit and/or counseling patient: Coding Level of Care Code None Diagnoses fever O86.4
--- NOTE | 2023-04-01 06:56 | XRay Report ---
XR chest 2V PA/lateral CLINICAL HISTORY: difficulty with deep breathing, fever. COMPARISON STUDY: No previous studies for comparison. FINDINGS: Lung volumes are normal. Lungs are clear. There is no pneumothorax or pleural effusion. Car diac size is normal. Obscuration of the right heart border on PA projection is due to pectus excavatu m deformity shown on lateral projection. There is no evidence for pulmonary edema. IMPRESSION: No acute cardiopulmonary findings. ACT 112: Negative or not required by law. Electronically signed by: Jacoby Cristina M.D. 04/01/2023 6:55 AM
[2023-04-01] MEDS: IBUPROFEN 600 MG TAB PO PRN ×3 (07:34→19:51)
[2023-04-01] MEDS: DOCUSATE SODIUM 100 MG CAP PO SCH ×2 (07:35→19:51)
[2023-04-01] MEDS: FERROUS SULFATE 325 MG TAB PO SCH (07:35)
[2023-04-01] MEDS: PRENATAL VITAMIN 1 TAB PO SCH ×2 (07:36→19:51)
[2023-04-01] MEDS: OMEGA-3 (PURIFIED FISH OIL) 1 GM CAP PO SCH ×2 (07:36→19:51)
--- NOTE | 2023-04-01 08:13 | Obstetrical Progress Note ---
Date of Service April 01, 2023 Assessment & Plan (1) Encounter for assessment: (2) fever: Plan continues with fever. now agrees to starting iv abx. morning cbc not done, will put in stat now and lab called. clinda/gent planned. Subjective Ambulation: ambulating normally Voiding: no voiding problems Diet Tolerance:: regular diet Lochia:: Small Feeding Type:: breast feeding pt denies pain. no urinary issues. no bleeding issues. no nursing issues. no uterine tenderness that she reports. no foul smelling dc. perineal laceration is sore but not severe Constitutional: + as per Subjective / HPI Physical Exam Constitutional WD/WN, vitals as above Respiratory normal respiratory effort, lungs clear to auscultation Cardiovascular Rate/Rhythm: regular rate and regular rhythm Gastrointestinal (Abdomen) Inspection/Auscultation: abdomen normal to inspection Percussion/Palpation: abdomen soft Fundus firm 2cm down, mild tenderness at most perineum, laceration site intact. no edema, no concerning drainage. Musculoskeletal nt calves no edema Neurologic grossly normal Psychiatric A+Ox3, euthymic affect Results & Data Vital Signs (Past 12 Hours) Vital Signs Temp Pulse Resp BP Pulse Ox O2 Del Method 04/01/23 04:55 98.1 F 85 18 111/70 99 Room Air 03/31/23 22:22 98.6 F 111 H 18 117/76 98 Room Air 03/31/23 21:00 102.6 F H
[2023-04-01] MEDS ORDERED: GENTAMICIN CONSULT ACTIVE PRN (08:15)
[2023-04-01 08:48] LABS: Basophils # (auto) 0.02 K/uL (0.00-0.20); Basophils % (auto) 0.2 %; Eosinophils # (auto) 0.04 K/uL (0.00-0.50); Eosinophils % (auto) 0.3 %; Hematocrit (blood only) 24.3 % (37.0-47.0); Hemoglobin 8.1 g/dl (12.0-16.0); Immature Granulocytes # (auto) 0.07 K/uL (0.01-0.20); Immature Granulocytes % (auto) 0.6 %; Lymphocytes % (auto) 12.7 %; Mean Corpuscular Hemoglobin 29.8 pg (25.0-34.0); Mean Corpuscular Hgb Conc 33.3 g/dL (32.0-36.0); Mean Corpuscular Volume 89.3 fL (80.0-100.0); Mean Platelet Volume 9.2 fL (9.4-12.4); Monocytes % (auto) 5.9 %; Neutrophils # (auto) 9.49 K/uL (1.40-6.50); Neutrophils % (auto) 80.3 %; Platelet Count 148 K/uL (130-400); RDW Coefficient of Variation 13.8 % (11.5-14.5); Red Blood Count 2.72 M/uL (4.20-5.40); White Blood Count 11.82 K/ul (4.8-10.8)
[2023-04-01] MEDS: GENTAMICIN SULFATE IV SCH (09:14)
[2023-04-01] MEDS: DEXTROSE 5% IV SCH (09:14)
[2023-04-01] MEDS: CLINDAMYCIN/D5W 900 MG/50 ML BAG IV SCH ×2 (10:01→17:13)
--- NOTE | 2023-04-01 13:22 | Pharmacy Report ---
Pharmacy PK ABX Note - Date of Service April 01, 2023 - Assessment and Plan Assessment 32 year old F receiving gentamicin and clindamycin for treatment of post- fever. Pertinent microbiologic data includes: negative Group B Strep screening in February Gentamicin 5 mg/kg actual body weight q24h indicated for . Goal trough < 1 mcg/mL. Trough level monitoring not needed unless therapy >72 hours - will order prior to 3rd dose Plan Gentamicin * 358 mg IV every 24 hours * Trough level ordered for 04/03 @ 0830 Pharmacy will continue to follow and will adjust dose/frequency as necessary. Thank you. Pharmacy has transitioned to AUC monitoring for vancomycin. AUC/SOLA is the preferred PK/PD target and is associated with decreased risk of nephrotoxicity compared to traditional trough targets.
[2023-04-01 15:00] LABS: Creatinine Clr Calc Pharmacy 140.6 ml/min; Est GFR (Non-African American) 124.2 ml/min
[2023-04-01] MEDS: ACETAMINOPHEN 325 MG TAB PO PRN (19:54)
[2023-04-02] MEDS: CLINDAMYCIN/D5W 900 MG/50 ML BAG IV SCH ×3 (01:19→16:55)
[2023-04-02] MEDS: IBUPROFEN 600 MG TAB PO PRN ×3 (08:47→21:11)
[2023-04-02] MEDS: DOCUSATE SODIUM 100 MG CAP PO SCH ×2 (08:48→20:44)
[2023-04-02] MEDS: PRENATAL VITAMIN 1 TAB PO SCH (08:48)
[2023-04-02] MEDS: FERROUS SULFATE 325 MG TAB PO SCH (08:48)
[2023-04-02 09:05] LABS: Creatinine Clr Calc Pharmacy 154.4 ml/min; Est GFR (African American) 148.5 ml/min; Est GFR (Non-African American) 128.1 ml/min
--- NOTE | 2023-04-02 09:22 | Obstetrical Progress Note ---
Date of Service April 02, 2023 Assessment & Plan (1) endometritis: Day 3 status post vaginal delivery. Patient has developed endometritis and is on gentamicin and clindamycin. Last fever at 1950 yesterday. Discussed continuing with antibiotics for at least 24 hours post last elevated temperature. Patient otherwise doing well without other concerns. Likely discharge tomorrow morning if course remains stable (2) Encounter for assessment: visit type: routine follow-up Qualified Code(s): Z39.2 - Encounter for routine follow-up Subjective Ambulation: ambulating normally Voiding: no voiding problems Passing Gas:: Yes Diet Tolerance:: regular diet Lochia:: Moderate Feeding Type:: breast feeding Feeling well this morning. No concerns overnight. Last fever at 1950 yesterday. Physical Exam Breast-feeding at time of exam Constitutional WD/WN, vitals as above Respiratory normal respiratory effort; no respiratory distress and no labored breathing Results & Data Vital Signs (Past 12 Hours) Vital Signs Temp Pulse Pulse Resp BP Pulse Ox O2 Del Method 04/02/23 07:40 36.8 C 96 H 18 129/80 99 Room Air 04/02/23 01:00 36.4 C L 72 16 125/82 99 Room Air
[2023-04-02] MEDS: GENTAMICIN SULFATE IV SCH (09:59)
[2023-04-02] MEDS: DEXTROSE 5% IV SCH (09:59)
[2023-04-02 14:36] LABS: Hematocrit (blood only) 27.8 % (37.0-47.0); Hemoglobin 9.2 g/dl (12.0-16.0); Mean Corpuscular Hemoglobin 29.7 pg (25.0-34.0); Mean Corpuscular Hgb Conc 33.1 g/dL (32.0-36.0); Mean Corpuscular Volume 89.7 fL (80.0-100.0); Mean Platelet Volume 8.8 fL (9.4-12.4); Platelet Count 181 K/uL (130-400); RDW Coefficient of Variation 13.7 % (11.5-14.5); RDW Standard Deviation 44.9 fL (36.4-46.3); White Blood Count 10.39 K/ul (4.8-10.8)
[2023-04-02] MEDS ORDERED: Nursing to Pharmacy Communication SCH (17:15)
[2023-04-02] MEDS: PENICILLIN G POTASSIUM 2 MU in DEXTROSE 5% 100 ML IV SCH ×2 (17:56→21:17)
[2023-04-02] MEDS: OMEGA-3 (PURIFIED FISH OIL) 1 GM CAP PO SCH (20:44)
--- NOTE | 2023-04-03 07:09 | Obstetrical Progress Note ---
Date of Service April 03, 2023 Assessment & Plan (1) Encounter for assessment: Day 4 status post vaginal delivery complicated by endometritis. Patient doing well has been afebrile for well over 24 hours. White count has also improved. Transition patient to Augmentin we will continue for an additional 5 days outpatient. Stable for discharge visit type: routine follow-up Qualified Code(s): Z39.2 - Encounter for routine follow-up (2) endometritis: Subjective Ambulation: ambulating normally Voiding: no voiding problems Passing Gas:: Yes Diet Tolerance:: regular diet Lochia:: Moderate Feeding Type:: breast feeding Feeling well this morning. No concerns overnight. Last fever at 1950 on 04/01 Physical Exam Breast-feeding at time of exam Constitutional WD/WN, vitals as above Respiratory normal respiratory effort; no respiratory distress and no labored breathing Results & Data Vital Signs (Past 12 Hours) Vital Signs Temp Pulse Resp BP BP Pulse Ox O2 Del Method 04/03/23 03:53 36.5 C 04/03/23 00:00 36.6 C 74 18 123/77 97 Room Air 04/02/23 21:00 36.5 C 86 18 122/80 97 Room Air
--- NOTE | 2023-04-03 07:17 | Obstetrical Progress Note ---
Date of Service April 03, 2023 Assessment & Plan (1) care following vaginal delivery: Plan Doing well Encourage ambulation DC home today Admission and Anticipated Discharge Date Admission Date: March 29, 2023 Supervising Physician Co-Signing Physician Notes Day 4 status post vaginal delivery complicated by endometritis. Patient doing well has been afebrile for well over 24 hours. White count has also improved. Transition patient to Augmentin we will continue for an additional 5 days outpatient. Stable for discharge Subjective 32 yo post day 4 s/p Ambulation: ambulating normally Voiding: no voiding problems Passing Gas:: Yes Diet Tolerance:: regular diet Lochia:: Small Feeding Type:: breast feeding Current Pain Level: Resting comfortably this AM in NAD. Afebrile since 1950 on 04/01/23. Desires DC home Denies MIRANDA, CP, SOB, N/V/D, LE pain/swelling. Review of Systems Review of Systems: reviewed, per HPI Physical Exam Physical Exam: General: patient resting comfortably, NAD, non-toxic in appearance, answers questions appropriately. Skin: warm, dry, intact HEENT: NC/AT, anicteric sclera, conjunctiva without injection, moist mucus membranes. Heart: +S1/S2, regular, no m/r/g Lungs: equal air entry bilaterally, no rales/rhonchi/wheezes Abd: +BS, soft, NT/ND, uterine fundus firm at umbilicus. Ext: warm, no clubbing/cyanosis or edema, Stella's neg. Neuro: nonfocal, speech intact, no facial droop, moving all extremities on command. Results & Data Vital Signs (Past 12 Hours) Vital Signs Temp Pulse Resp BP BP Pulse Ox O2 Del Method 04/03/23 03:53 36.5 C 04/03/23 00:00 36.6 C 74 18 123/77 97 Room Air 04/02/23 21:00 36.5 C 86 18 122/80 97 Room Air Laboratory Results 04/02/23 04/02/23 Range/Units 14:23 07:47 WBC 10.39 (4.8-10.8) K/ul RBC 3.10 L (4.20-5.40) M/uL Hgb 9.2 L (12.0-16.0) g/dl Hct 27.8 L (37.0-47.0) % MCV 89.7 (80.0-100.0) fL MCH 29.7 (25.0-34.0) pg MCHC 33.1 (32.0-36.0) g/dL RDW Std Deviation 44.9 (36.4-46.3) fL RDW Coeff of Lisset 13.7 (11.5-14.5) % Plt Count 181 (130-400) K/uL MPV 8.8 L (9.4-12.4) fL Creatinine 0.51 L (0.6-1.2) mg/dl Est Cr Clr Drug Dosing 154.4 ml/min Est GFR ( Amer) 148.5 ml/min Est GFR (Non-Af Amer) 128.1 ml/min Resident Activity Tracking Resident Involvement: Resident Care Provided Care Provided: Adult Hospital Medicine
[2023-04-03] MEDS ORDERED: AMOXICILLIN/CLAVULANATE 875 MG TAB PO SCH (08:00)
[2023-04-03] MEDS ORDERED: GENTAMICIN TROUGH ONE (08:30)
[2023-04-03] MEDS: PRENATAL VITAMIN 1 TAB PO SCH (08:50)
[2023-04-03] MEDS: FERROUS SULFATE 325 MG TAB PO SCH (08:50)
[2023-04-03] MEDS: DOCUSATE SODIUM 100 MG CAP PO SCH (08:50)
[2023-04-03] MEDS: IBUPROFEN 600 MG TAB PO PRN (08:51)
[2023-04-03] MEDS: OMEGA-3 (PURIFIED FISH OIL) 1 GM CAP PO SCH (09:02)
== END 2023-04-03 15:11 | disposition home or self-care (01) | DRG 806 ==
LOC: OPB 22:18 → 4S1 22:21 → 4E2 03-30 19:31

== ENCOUNTER 2025-03-12 14:40 | Inpatient (IN) ==
[2025-03-12] MEDS ORDERED: OXYTOCIN 30 UNITS/NSS 30 UNITS/500 ML BAG IV PRN ×2 (14:49→16:25)
[2025-03-12] MEDS ORDERED: LACTATED RINGER'S 1,000 ML IV PRN (14:49)
[2025-03-12] MEDS: LIDOCAINE 1% LOCAL 20 ML VIAL INFIL PRN (15:05)
[2025-03-12] MEDS: OXYTOCIN 10 UNITS/ML VIAL ONE (15:06)
--- NOTE | 2025-03-12 15:57 | Delivery Summary ---
Vaginal Delivery Summary Date of Service March 12, 2025 Vaginal Delivery Summary DIAGNOSES: 1. Ramirez intrauterine at 39w6d gestation. 2. Spontaneous onset of labor. 3. Group B Streptococcus Neg . PROCEDURE: Spontaneous vaginal delivery and repair of 1st degree laceration. SURGEON: Raine Ohara MD. BROOMCORN SCRAPER: None. ESTIMATED BLOOD LOSS: 200 mL. COMPLICATIONS: None. PLACENTA: Spontaneous and intact with a 3-vessel cord. DISPOSITION: Stable to labor and delivery. DESCRIPTION: The patient pushed well and brought the head to in DOA position. The infant's head was allowed to deliver with contraction force and no further active pushing, with the perineum protected during this time. There was no nuchal cord. The right shoulder was anterior. The shoulders and body delivered without any difficulty, and the was placed on the maternal abdomen. It was vigorous and moving all extremities, and making respiratory efforts. The cord was doubly clamped by the MD and then cut by the FOB. The placenta delivered spontaneously and was noted to be intact and with a 3VC. The cervix, vagina and perineum were examined and were found to have separation of the prior perineal scar which was hemostatic, but caused the introitus to be significantly widened, so repair was offered and accepted. Infiltration with 10cc 1% plain lido followed by vicryl stitches. The fundus was firm and lochia minimal immediately after delivery. [facility] Vaginal Delivery Charge Vaginal Delivery Codes: 70679 global code for the antepartum, delivery, and post-
[2025-03-12] MEDS: OXYTOCIN 10 UNITS/ML VIAL IM ONE (16:22)
[2025-03-12] MEDS: LIDOCAINE 1% LOCAL 20 ML VIAL ONE (16:22)
[2025-03-12] MEDS ORDERED: IBUPROFEN 600 MG TAB PO PRN (16:25)
[2025-03-12] MEDS ORDERED: HYDROCORTISONE ACETATE 25 MG SUPP PR PRN (16:25)
--- NOTE | 2025-03-12 17:30 | History & Physical Report ---
Date of Service March 12, 2025 Assessment & Plan (1) Normal labor: Plan admit for labor. Begin pushing if we can get her under control. anticipate . strip reassuring. Admission and Anticipated Discharge Date Admission Date: March 12, 2025 History of Present Illness Chief Complaint: contractions and lof Primary Care Provider: FAYE Pedroza Late entry because of census on the unit. Patient is a 34yo at 39 6/7 weeks, . She presents to labor and delivery in a wheel chair moaning and screaming. She is placed in the room and noted to be grossly ruptured. She was checked by nursing and noted to be anterior lip. The patient is screaming with contractions and involuntarily pushing. and Delivery Plans Rubella equivocal - MMR pp Will be traveling from 16 - 23 weeks gestation RSV given 02/17/2025 OB Labs: Blood Type AB Positive 08/22/24 Antibody Screen NEGATIVE 08/22/24 Hgb 10.2 g/dl (12.0-16.0) L 12/17/24 Hct 32.2 % (37.0-47.0) L 12/17/24 MCV 87.2 fL (80.0-100.0) 08/22/24 Plt Count 228 K/uL (130-400) 08/22/24 Rubella IgG Antibody Equivocal (Immune) L 08/22/24 Treponema pallidum Ab Negative (Negative) 12/17/24 Hep Bs Antigen Negative (Negative) 08/22/24 Hepatitis C Antibody Negative (Negative) 08/22/24 HIV 1&2 Ab/P24 Ag 4thGn Negative (Negative) 08/22/24 Glucose 1 Hr 50 gm 117 mg/dl (70-130) 12/17/24 OB Optional Labs: Chlamydia trachomatis RNA Not Detected (NotDetected) 08/22/24 Neisseria gonorrhoeae RNA Not Detected (NotDetected) 08/22/24 Labs Reviewed: AB+ 07/21/22 1st tri 11.2, 34.5 plt 217 ucx neg Syphilis ab neg Hep B surface ag neg hep C neg HIV neg rubella nonimmune 7/2 H/H 10.1/31.5 plt 178 12/04/22 1hr 104 Reports neg Taoist carrier screen Neg NIPT male GBS neg--akh Allergies Allergy/AdvReac Type Severity Reaction Status Date / Time No Known Allergies Allergy Verified 03/06/25 14:46 Home Medications Medication Instructions Recorded Confirmed Type vits 168-iron 27 mg-folic 1 cap PO DAILY 01/19/23 03/06/25 History acid 800 mcg-omega3 235 mg capsule (One-A-Day -1) ferrous sulfate 325 mg (65 mg 325 mg PO DAILY 03/29/23 03/06/25 History iron) tablet (iron) -[id number] 1 cap PO DAILY 03/29/23 03/06/25 History oil 350 mg-400 mg capsule cholecalciferol (vitamin D3) PO 08/07/24 03/06/25 History vitamin Q12-jyddm acid PO 08/07/24 03/06/25 History breast pump #1 ea 01/02/25 03/06/25 Rx Patient History Medical History (Updated 03/12/25 @ 17:33 by Meagan Dickerson MD, FACOG) History of chicken pox Anemia endometritis History of cold sores Surgical History No pertinent past surgical history Family History Denies family history of Ovarian cancer Prostate cancer Diabetes Myocardial infarction Breast cancer Lung cancer Colorectal cancer Hypertension Stroke Social History (Updated 03/12/25 @ 15:37 by Emily Dickens, RN) Smoking Status: Never smoker Do You Dip or Chew Tobacco: No; Hx Alcohol Use: No Hx Substance Use: No Preferred Language: Kiswahili Communication Ability: Effective Dental Claims Processor Required: No Beliefs That Will Affect Care: None marital status: marital status details: Asas (34) [phone] Current Living Situation: Spouse and Family Current Living Situation Comment: lives with spouse, child, no pets current occupational status: unemployed current occupation: homemaker Other Information That Helps Us Care for You: No Feels Safe at Home: Yes Diet: regular Assistive Devices: None OB History Past Pregnancies Del. Date GA wks Lbr Lgth wt Sex Type del Anes Place Del Prov ? Comment 03/30/23 40 7-2 M Epidural [facility] [place] [facility] History noncontributory Physical Exam Constitutional: WD/WN, vitals as above (screaming) Gastrointestinal (Abdomen): soft, gravid, nt Psychiatric: A+Ox3, euthymic affect Genitourinary: cx--c/c/+1 toco--q2 efm--reassuring tracing Results & Data Vital Signs (Past 12 Hours) Vital Signs Temp Pulse Resp BP 03/12/25 17:18 75 116/65 03/12/25 17:04 75 121/67 03/12/25 16:49 74 117/60 03/12/25 16:45 20 03/12/25 16:34 81 122/69 03/12/25 16:19 73 138/73 03/12/25 16:03 81 130/61 03/12/25 15:48 87 131/60 03/12/25 15:40 20 03/12/25 15:40 36.7 C 81 20 157/63 H 03/12/25 15:34 81 157/63 H 03/12/25 15:25 18 03/12/25 15:22 80 156/65 H 03/12/25 15:10 20 Coding Level of Care Code None Diagnoses Normal labor O80; Z37.9
[2025-03-12] MEDS: DIPHTHER/TETAN/PERTUS Vaccine (Tdap, Adol/Adult) 0.5mL IM ONE (18:00)
[2025-03-12 18:12] LABS: Hematocrit (blood only) 32.3 % (37.0-47.0); Hemoglobin 11.1 g/dl (12.0-16.0); Mean Corpuscular Hemoglobin 29.4 pg (25.0-34.0); Mean Corpuscular Volume 85.7 fL (80.0-100.0); Platelet Count 215 K/uL (130-400); RDW Standard Deviation 43.4 fL (36.4-46.3); Red Blood Count 3.77 M/uL (4.20-5.40); White Blood Count 16.35 K/ul (4.8-10.8)
[2025-03-12] MEDS: DOCUSATE SODIUM 100 MG CAP PO SCH (21:22)
[2025-03-13] MEDS ORDERED: OXYTOCIN 10 UNITS/ML VIAL ONE (00:57)
[2025-03-13] MEDS: ACETAMINOPHEN 325 MG TAB PO PRN (01:48)
[2025-03-13] MEDS: BENZOCAINE 20% SPRY 85 APPLN/85 GM CAN EXT PRN (04:43)
--- NOTE | 2025-03-13 07:39 | Obstetrical Progress Note ---
Date of Service March 13, 2025 Assessment & Plan (1) care and examination: Plan: 34yo post- day 1 s/p Fells well today Continue post- care Encourage ambulation and Pain controlled Vital Signs stable D/c tomorrow Admission and Anticipated Discharge Date Admission Date: March 12, 2025 Supervising Physician Co-Signing Physician Notes Resident Physician Supervision Note: I interviewed and examined the patient. Discussed with Dr. Sorenson and agree with findings and plan as documented in the note. Any exceptions or clarifications are listed here: Doing well. Meeting goals. Routine care. Documented By: Meagan Dickerson MD, FACOG Subjective 34yo post- day 1 s/p Ambulation: Ambulating normally Voiding: No voiding problems Passing Gas:: Yes Diet Tolerance:: regular diet Lochia:: Small Feeding Type:: Current Pain Level: 0/10 controlled with Tylenol Resting comfortably this AM in NAD. Denies MIRANDA, CP, SOB, N/V/D, LE pain/swelling. Physical Exam Physical Exam: General: patient resting comfortably, NAD, non-toxic in appearance, answers questions appropriately Skin: warm, dry, intact Heart: S1/S2 heard, regular, no m/r/g Lungs: equal air entry bilaterally, no rales/rhonchi/wheezes Abd: Normoactive BS, soft, NT/ND, uterine fundus firm 2cm below umbilicus Ext: warm, no clubbing/cyanosis or edema, Stella's neg Neuro: nonfocal, patient AAOx4, speech intact, no facial droop, moving all extremities on command Results & Data Vital Signs (Past 12 Hours) Vital Signs Temp Pulse Resp BP Pulse Ox O2 Del Method 03/13/25 04:15 36.7 C 85 16 108/70 98 Room Air 03/13/25 00:30 36.9 C 88 14 117/72 98 Room Air 03/12/25 20:30 37.0 C 93 H 16 115/70 97 Room Air Resident Activity Tracking Resident Involvement: Resident Care Provided Care Provided: OB Delivery
[2025-03-13] MEDS: PRENATAL VITAMIN 1 TAB PO SCH (08:05)
[2025-03-13 11:46] LABS: Hematocrit (blood only) 30.9 % (37.0-47.0); Hemoglobin 10.1 g/dl (12.0-16.0)
[2025-03-13 23:19] VITALS: RESP 16
--- NOTE | 2025-03-14 07:22 | Obstetrical Progress Note ---
Date of Service March 14, 2025 Assessment & Plan (1) care and examination: Plan: 34yo post- day 2 s/p Fells well today Continue post- care Encourage ambulation and Pain controlled Vital Signs stable Rubella equivocal, MMR vaccine offered, pt declines D/c today, follow up in OB office in 6 weeks. D/c instructions discussed Admission and Anticipated Discharge Date Admission Date: March 12, 2025 Supervising Physician Co-Signing Physician Notes Resident Physician Supervision Note: I was present with Dr. Sorenson during the history and exam. I discussed the case with the resident and agree with the findings and plan as documented in the note. Any exceptions or clarifications are listed here: stable, eating, voiding, ambulating, concerns about laceration expressed, breast feeding. no pain issues. abd soft ff 2 down nt, ext nt calves. perineum--nl healing reapprox laceration ppd#2 s/p , dc home. instructions reviewed. reassured pt about laceration and healing. f/u 6wk pp. Documented By: Chloe Kelley MD, FACOG Subjective 34yo post- day 2 s/p Ambulation: Ambulating normally Voiding: No voiding problems Passing Gas:: Yes Diet Tolerance:: regular diet Lochia:: Small Feeding Type:: Pain controlled with Tylenol Resting comfortably this AM in NAD Denies MIRANDA, CP, SOB, N/V/D, LE pain/swelling Physical Exam Physical Exam: General: patient resting comfortably, NAD, non-toxic in appearance, answers questions appropriately Skin: warm, dry, intact Heart: S1/S2 heard, regular, no m/r/g Lungs: equal air entry bilaterally, no rales/rhonchi/wheezes Abd: Normoactive BS, soft, NT/ND, uterine fundus firm 2cm below umbilicus Ext: warm, no clubbing/cyanosis or edema, Stella's neg Neuro: nonfocal, patient AAOx4, speech intact, no facial droop, moving all extremities on command Results & Data Vital Signs (Past 12 Hours) Vital Signs Temp Pulse Resp BP Pulse Ox O2 Del Method 03/13/25 23:19 36.6 C 73 16 123/78 98 Room Air 03/13/25 20:05 36.6 C 89 18 108/75 98 Room Air Resident Activity Tracking Resident Involvement: Resident Care Provided Care Provided: OB Delivery
[2025-03-14 08:43] VITALS: BP 117/85; PULSE 123; TEMP 97.3; O2SAT 99
== END 2025-03-14 13:55 | disposition home or self-care (01) | DRG 807 ==
LOC: OPB 14:40 → 4S1 14:42 → 4E2 19:01
DX: Z3A.39 39 weeks gestation of pregnancy; O70.0 First degree perineal laceration during delivery; Z37.0 Single live birth; O42.02 Full-term premature rupture of membranes, onset of labor within 24 hours of rupture